=== PATIENT | female | born 1995 | race Caucasian/White ===

== ENCOUNTER 2022-10-20 20:30 | Emergency (ER) | payer SELFPAY ==
[2022-10-20 20:38] VITALS: BMI 18.0
[2022-10-20 20:43] VITALS: BP 137/65; PULSE 69; RESP 14; TEMP 36.8; O2SAT 99; BMI 19.3
[2022-10-20 20:45] LABS: Microscopic, Urine URINE MICROSCOPIC (MICROSCOPIC)
[2022-10-20 20:54] LABS: Basophils # 0.1 K/mm3 (0-0.2); Basophils % 0.8 % (0.1-2.0); Eosinophils # 0.1 K/mm3 (0.0-0.4); Eosinophils % 0.8 % (0.1-12.0); Hematocrit 45.2 % (37.0-47.0); Hemoglobin 14.8 g/dL (12.2-16.2); Lymphocytes % 23.8 % (10-50); Mean Corpuscular HGB Conc 32.7 g/dL (31.8-35.4); Mean Corpuscular Hemoglobin 29.5 pg (27.0-31.2); Mean Corpuscular Volume 90.3 fl (81-99); Mean Platelet Volume 7.4 fl (7.4-10.4); Monocytes # 0.6 K/mm3 (0.1-1.0); Monocytes % 5.1 % (1.7-9.3); Neutrophils # 8.7 K/mm3 (1.8-7.8); Neutrophils % 69.6 % (37.0-80.0); Platelet Count 453 K/mm3 (142-424); Red Blood Count 5.01 M/mm3 (4.20-5.40); Red Cell Distribution Width 13.4 % (11.5-17.5); White Blood Count 12.5 K/mm3 (4.8-10.8)
[2022-10-20 21:06] LABS: Chloride 98 mmol/L (98-107); Potassium 3.5 mmoL/L (3.5-5.1); Sodium 140 mmol/L (136-145)
[2022-10-20 21:09] LABS: Alanine Aminotransferase 25 U/L (12-78); Albumin/Globulin Ratio 1.3 (1.1-1.8); Alkaline Phosphatase 83 U/L (38-126); Anion Gap 20.5 mEq/L (5-15); Aspartate Amino Transferase 34 U/L (14-36); Bilirubin,Total 1.3 mg/dl (0.2-1.3); Blood Urea Nitrogen 12 mg/dl (7-17); Carbon Dioxide 25 mmol/L (22.0-30.0); Creatinine Clearance Estimated 93 mL/min (50-200); Estimated Glomerular Filt Rate 86 ml/min (>60); GFR (African American) 104 ML/MIN (>60); Globulin 3.9 g/dL (1.3-3.2); Total Protein,Serum 8.9 g/dl (6.3-8.2)
[2022-10-20 21:10] LABS: Calcium 10.3 mg/dl (8.4-10.2); Glucose 98 mg/dl (74-100)
[2022-10-20 21:12] LABS: Appearance,Urine TURBID (Clear); Blood, Urine 3+ (Negative); Color,Urine RED (Yellow); Glucose,Urine (UA) TRACE (Negative); Ketones,Urine 1+ (Negative); Leukocyte Esterase,Urine TRACE (Negative); Nitrate,Urine POSITIVE (Negative); PH,Urine 6.5 (5.0-8.5); Protein,Urine 3+ (Negative); Specific Gravity, Urine >= 1.030 (1.005-1.030)
[2022-10-20 21:15] LABS: Urine Pregnancy, HCG Qual. Positive (Negative)
[2022-10-20 21:16] LABS: Bilirubin,Urine 1+ (Negative)
[2022-10-20 21:17] LABS: Bacteria,Urine 1+ /lpf; RBC,Urine TNTC #/hpf (0-3); WBC,Urine Occasional #/hpf (0-3)
--- NOTE | 2022-10-20 21:22 | PC.NURSE ---
called lab and s/w Andreea to confirm that pt does not have a know Blood type in [facility] system. She does not has any known rh type in the system. Will collect blood typing with lab
[2022-10-20 21:27] LABS: HCG,Quantitative 22 mIU/ml (0-5.42)
--- NOTE | 2022-10-20 21:38 | PC.NURSE ---
assisted lab with blood draw for blood typing
--- NOTE | 2022-10-20 21:43 | PC.NURSE ---
pt given a warm blanket
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
--- NOTE | 2022-10-20 22:05 | PC.NURSE ---
Dr. Meyer would like an update on Rh factor. Lab states it will be about 10-15 min. updated
[2022-10-20 22:29] VITALS: BP 125/81; PULSE 67; O2SAT 100
--- NOTE | 2022-10-20 22:29 | PC.NURSE ---
Rounded on pt. No needs or complaints voiced at this time.
[2022-10-20 22:38] VITALS: BP 125/81; PULSE 83; RESP 17; TEMP 36.7; O2SAT 100
== END 2022-10-20 22:41 | disposition home or self-care (01) ==
PROVIDERS: Emergency Provider Emergency Medicine; PCP Nurse Practitioner Family
DX: O26.851 Spotting complicating pregnancy, first trimester (principal); O26.891 Other specified pregnancy related conditions, first trimester; R10.2 Pelvic and perineal pain; Z3A.00 Weeks of gestation of pregnancy not specified
CPT/HCPCS: 80053; 81001; 81025; 84702; 85025; 86900; 86901; 96360; 99284; 99285